=== PATIENT | male | born 1965 | race African-American/Black ===

== ENCOUNTER 2024-01-30 16:30 | Emergency (ER) | payer OTHER, SELFPAY ==
[~2024-01-30] VITALS: Ht 172.7 cm; Wt 77.3 kg
[~2024-01-30 16:30] MED LIST: NOCURR
[2024-01-30 16:39] VITALS: TEMP 98.1
[2024-01-30] MEDS: KETOROLAC TROMETHAMINE 30 MG/ML VIAL IM ONE (18:08)
[2024-01-30] MEDS: LIDOCAINE 5% TRANSDERMAL PATCH TD ONE (18:10)
[2024-01-30] MEDS: IBUPROFEN 600 MG TABLET PO ONE (18:19)
[2024-01-30 20:19] LABS: BASOPHILS % (AUTO) 0.8 % (0.0-2.0); EOSINOPHILS % (AUTO) 2.7 % (1.0-6.0); HEMOGLOBIN 13.9 g/dL (13.5-17.5); LYMPHOCYTES # (AUTO) 2.2 K/uL (1.0-4.8); LYMPHOCYTES % (AUTO) 37.2 % (22.0-44.0); MEAN CORPUSCULAR HEMOGLOBIN 30.5 pg (26.0-34.0); MEAN CORPUSCULAR HGB CONC 33.9 G/dL (31.0-37.0); MEAN CORPUSCULAR VOLUME 90 fL (80-100); MONOCYTES # (AUTO) 0.6 K/uL (0.1-1.0); MONOCYTES % (AUTO) 9.7 % (2.0-9.0); NEUTROPHILS % (AUTO) 49.6 % (40.0-70.0); PLATELET COUNT (AUTO) 254 K/uL (150-450); RED BLOOD CELL COUNT(AUTO) 4.56 MIL/uL (4.50-5.90); RED CELL DISTRIBUTION WIDTH 13.4 % (11.5-14.5)
[2024-01-30 20:27] LABS: ANION GAP 6 mmol/L (8-16); CALCIUM, TOTAL 9.5 mg/dL (8.8-10.5); CARBON DIOXIDE 29 mmol/L (22-29); CHLORIDE 99 mmol/L (98-107); CREATININE 0.89 mg/dL (0.60-1.30); GLOMERULAR FILTR. RATE CALC > 60 mL/min (>60); GLUCOSE,RANDOM 87 mg/dL (70-110); SODIUM SERUM 134 mmol/L (136-145); UREA NITROGEN, BLOOD 17 mg/dL (7-18)
[2024-01-30 20:33] LABS: ALANINE AMINOTRANSFERASE 21 U/L (12-78); ALBUMIN 3.6 g/dL (3.4-5.0); ALKALINE PHOSPHATASE 86 U/L (46-116); ASPARTATE AMINOTRANSFERASE 22 U/L (15-37); BILIRUBIN,TOTAL 0.3 mg/dL (0.1-1.0); TOTAL PROTEIN, SERUM 8.3 g/dL (6.4-8.2)
[2024-01-30 20:35] LABS: TROPONIN I-HIGH SENSITIVITY 10 ng/L (<76)
[2024-01-30 20:47] VITALS: BP 186/119; PULSE 76; RESP 18
[2024-01-30 20:58] LABS: B-TYPE NATRIURETIC PEPTIDE < 5 pg/mL (0-100)
== END 2024-01-30 21:42 | disposition left against medical advice (07) ==
LOC: EMS 16:39
DX: M79.18 Myalgia, other site (principal); I10 Essential (primary) hypertension
CPT/HCPCS: 99284; 71045; 80053; 83880; 84484; 85025; 36415; 73070; 73120; 93005; J1885